=== PATIENT | male | born 1945 | race Asian ===

== ENCOUNTER 2018-07-29 14:42 | Inpatient (IN) | payer OTHER, MEDICARE ==
[~2018-07-29] VITALS: Ht 170.2 cm; Wt 68.0 kg
[2018-07-29] MEDS ORDERED: ATROPINE SULFATE 1 MG/10 ML SYRINGE IVP ONE (14:43)
[2018-07-29] MEDS ORDERED: SODIUM BICARBONATE 8.4% JECT 50 MEQ/50 ML SYRINGE IVP ONE ×2 (14:43→17:30)
[2018-07-29] MEDS ORDERED: EPINEPHrine JECT 1 MG/10 ML SYR IVP ONE (14:43)
[2018-07-29 14:46] VITALS: BP_SYST 92
[2018-07-29] MEDS ORDERED: NACL 0.9% 1,000 ML IV ONE ×2 (14:48→16:30)
[2018-07-29] MEDS ORDERED: ONDANSETRON HCL 4 MG/2 ML VIAL IVP ONE (15:00)
[2018-07-29 16:01] LABS: HEMATOCRIT 40.9 % (36-54); HEMOGLOBIN 12.8 g/dL (14.0-18.0); MEAN CORPUSCULAR HEMOGLOBIN 35 pg (27-31); MEAN CORPUSCULAR HGB CONC 31 % (32-36); MEAN CORPUSCULAR VOLUME 113 fL (79.0-98.0); RED BLOOD CELL COUNT(AUTO) 3.61 MIL/uL (4.2-6.2); RED CELL DISTRIBUTION WIDTH 18.8 % (9.0-15.0); WHITE BLOOD COUNT (AUTO) 8.3 K/uL (4.8-10.8)
[2018-07-29 16:05] LABS: ANION GAP 7 (5-15); CALCIUM 8.5 mg/dL (8.4-11.0); CHLORIDE 100 mmol/L (98-107); CREATININE 3.66 mg/dL (0.55-1.30); GLUCOSE 175 mg/dL (70-99); POTASSIUM 4.5 mmol/L (3.5-5.1); SODIUM SERUM 135 mmol/L (136-145); UREA NITROGEN, BLOOD 21 mg/dL (8-21)
[2018-07-29 16:07] LABS: INR 1.4 (0.80-1.20); PROTHROMBIN TIME 14.5 SECS (9.5-12.5)
[2018-07-29 16:12] LABS: ALANINE AMINOTRANSFERASE 109 U/L (12-78); ALBUMIN 2.7 g/dL (3.4-4.8); AMYLASE 67 U/L (0-100); ASPARTATE AMINOTRANSFERASE 106 U/L (10-37); LIPASE 247 U/L (73-393); TOTAL BILIRUBIN 0.6 mg/dL (0.0-1.0)
[2018-07-29 16:15] LABS: PLATELET COUNT (AUTO) 120 K/uL (130-430)
[2018-07-29] MEDS ORDERED: EPINEPHrine JECT 2 MG in NS 230 ML IV PRN (16:15)
[2018-07-29 16:17] LABS: BAND % (MANUAL) 1 % (0-6); BASOPHILS % (MANUAL) 0 % (0-2); EOSINOPHILS % (MANUAL) 2 % (0-7); LYMPHOCYTES % (MANUAL) 6 % (20-46); MONOCYTES % (MANUAL) 10 % (0-11)
[2018-07-29] MEDS ORDERED: ASPI-1155 PO (17:08)
[2018-07-29] MEDS ORDERED: MIDO5TAB PO (17:08)
[2018-07-29] MEDS ORDERED: LOSA50TA3 PO (17:08)
[2018-07-29] MEDS ORDERED: CARV6.2554 PO (17:08)
[2018-07-29] MEDS ORDERED: CLOP75TA32 PO (17:08)
[2018-07-29] MEDS ORDERED: ATOR40TA68 PO (17:08)
[2018-07-29] MEDS ORDERED: SITA50TA3 PO (17:08)
[2018-07-29] MEDS ORDERED: LEVE500T53 PO (17:08)
[2018-07-29] MEDS ORDERED: SEVE800T8 PO (17:08)
[2018-07-29 17:21] LABS: ALCOHOL, BLOOD < 3 mg/dL (<10)
[2018-07-29] MEDS ORDERED: NEPH PO (17:21)
[2018-07-29] MEDS ORDERED: ERGO500020 PO (17:21)
[2018-07-29] MEDS ORDERED: SODIUM BICARBONATE 8.4% JECT 50 MEQ/50 ML SYRINGE ONE (17:43)
[2018-07-29] MEDS: DOPamine PREMIX 250 ML IV PRN (18:43)
[2018-07-29] MEDS: FAMOTIDINE 20 MG TABLET PO SCH (19:15)
[2018-07-29] MEDS ORDERED: FAMOTIDINE PF 20 MG/2 ML VIAL ONE (19:37)
[2018-07-29] MEDS ORDERED: FAMOTIDINE PF 20 MG/2 ML VIAL IVP SCH (21:00)
[2018-07-29] MEDS ORDERED: NOREPINEPHRINE BITARTRATE 8 MG in D5W 242 ML IV PRN (22:15)
[2018-07-29] MEDS ORDERED: VANCOMYCIN HCL 1 GM/NS PREMIX 250 ML IV ONE (22:15)
[2018-07-29] MEDS ORDERED: DEXTROSE 50% JECT 50 ML DISP.SYRIN IVP PRN (22:15)
[2018-07-29] MEDS ORDERED: LORazepam 2 MG/ML VIAL IVP PRN (22:15)
[2018-07-29] MEDS ORDERED: INSULIN REGULAR, HUMAN 100 UNITS/ML, 10 ML VIAL (novoLIN R) SUBCUT PRN (22:15)
[2018-07-29 23:00] VITALS: BP_SYST 96
[2018-07-29] MEDS: HYDROCORTISONE SOD SUCC 100 MG/2 ML VIAL IVP SCH (23:01)
[2018-07-29] MEDS ORDERED: HYDROCORTISONE SOD SUCC 100 MG/2 ML VIAL ONE (23:08)
[2018-07-29] MEDS: IPRATROPIUM/ALBUTEROL SULFATE 3 ML AMPUL.NEB (DUONEB) INH PRN (23:40)
[2018-07-29] MEDS ORDERED: VANCOMYCIN HCL 1000 MG/VIAL IV ONE (23:46)
[2018-07-30] VITALS (26 sets, daily range): BP systolic 94–162
[2018-07-30] MEDS: DOPamine PREMIX 250 ML IV PRN (03:55)
[2018-07-30] MEDS: HYDROCORTISONE SOD SUCC 100 MG/2 ML VIAL IVP SCH (06:01)
[2018-07-30 06:40] LABS: BASOPHILS % (AUTO) 0.3 % (0.0-2.0); EOSINOPHILS % (AUTO) 0.1 % (0.0-4.0); HEMATOCRIT 40.9 % (36-54); HEMOGLOBIN 12.9 g/dL (14.0-18.0); LYMPHOCYTES # (AUTO) 0.2 K/uL (1.0-5.5); LYMPHOCYTES % (AUTO) 2.2 % (20.5-51.5); MEAN CORPUSCULAR HEMOGLOBIN 35 pg (27-31); MEAN CORPUSCULAR HGB CONC 32 % (32-36); MEAN CORPUSCULAR VOLUME 111 fL (79.0-98.0); MONOCYTES # (AUTO) 0.2 K/uL (0.0-1.0); MONOCYTES % (AUTO) 2.4 % (1.7-9.3); NEUTROPHILS # (AUTO) 7.6 K/uL (1.8-7.7); PLATELET COUNT (AUTO) 103 K/uL (130-430)
[2018-07-30 07:09] LABS: ANION GAP 10 (5-15); CHLORIDE 103 mmol/L (98-107); CREATININE 4.36 mg/dL (0.55-1.30); GLUCOSE 165 mg/dL (70-99); POTASSIUM 3.6 mmol/L (3.5-5.1); SODIUM SERUM 142 mmol/L (136-145); UREA NITROGEN, BLOOD 33 mg/dL (8-21)
[2018-07-30 07:15] LABS: INR 1.4 (0.80-1.20); PROTHROMBIN TIME 13.8 SECS (9.5-12.5)
[2018-07-30 07:24] LABS: ALANINE AMINOTRANSFERASE 92 U/L (12-78); ALBUMIN 2.3 g/dL (3.4-4.8); ASPARTATE AMINOTRANSFERASE 69 U/L (10-37); FREE T4 (FREE THYROXINE) 0.8 ng/dl (0.8-1.5); PHOSPHORUS 3.4 mg/dL (2.7-4.5); THYROID STIMULATING HORMONE 1.21 uIu/mL (0.36-3.74); TOTAL BILIRUBIN 0.7 mg/dL (0.0-1.0)
[2018-07-30] MEDS ORDERED: NON-FORMULARY MEDICATION (Sevelamer Carbonate (Renvela) 800 MG) PO SCH (08:00)
[2018-07-30] MEDS: IPRATROPIUM/ALBUTEROL SULFATE 3 ML AMPUL.NEB (DUONEB) INH PRN (08:23)
[2018-07-30] MEDS ORDERED: NEPHROVITE, (FOLIC ACID/VITAMIN B COMP W-C 1 TAB) PO SCH (09:00)
[2018-07-30] MEDS ORDERED: ASPIRIN 81 MG TAB.CHEW PO SCH (09:00)
[2018-07-30] MEDS ORDERED: PANTOPRAZOLE SODIUM 40 MG/VIAL (PROTONIX) IVP SCH (09:00)
[2018-07-30] MEDS ORDERED: levETIRAcetam 500 MG TABLET PO SCH (09:00)
[2018-07-30] MEDS ORDERED: CLOPIDOGREL BISULFATE 75 MG TABLET PO SCH (09:00)
[2018-07-30] MEDS: FAMOTIDINE 20 MG TABLET PO SCH (09:08)
[2018-07-30] MEDS ORDERED: SEVELAMER HCL 800 MG TABLET PO ONE (09:15)
[2018-07-30] MEDS ORDERED: NOREPINEPHRINE BITARTRATE 4 MG in NS 246 ML IV PRN (09:30)
[2018-07-30] MEDS ORDERED: NOREPINEPHRINE 4 MG/4 ML VIAL IV ONE ×2 (09:47→13:32)
[2018-07-30] MEDS ORDERED: MORPHINE 4 MG/ML INJ. SYRINGE IVP PRN (11:30)
[2018-07-30] MEDS ORDERED: LORazepam 2 MG/ML VIAL IVP PRN (11:30)
[2018-07-30] MEDS: SEVELAMER HCL 800 MG TABLET PO SCH ×2 (11:52→18:19)
[2018-07-30] MEDS ORDERED: ALBUMIN HUMAN 25% 100 ML IV ONE (13:15)
[2018-07-30] MEDS ORDERED: HYDROCORTISONE SOD SUCC 100 MG/2 ML VIAL IVP SCH (14:00)
[2018-07-30] MEDS ORDERED: NOREPINEPHRINE BITARTRATE 16 MG in NS 234 ML IV PRN (14:15)
[2018-07-30] MEDS ORDERED: DOPamine PREMIX 400 MG/250 ML BTL IV ONE (19:19)
[2018-07-30] MEDS ORDERED: EPINEPHrine JECT 1 MG/10 ML SYR IVP ONE (19:19)
[2018-07-30] MEDS ORDERED: SODIUM BICARBONATE 8.4% JECT 50 MEQ/50 ML SYRINGE IVP ONE (19:19)
[2018-07-30] MEDS ORDERED: CALCIUM CHLORIDE 1 GM/10 ML DISP.SYRIN (14 mEq Ca++/SYR) IV ONE (19:19)
[2018-07-30] MEDS ORDERED: MEROPENEM 500 MG in NS 50 ML IV SCH (21:00)
[2018-07-30] MEDS ORDERED: ATORVASTATIN 20 MG TABLET PO SCH (21:00)
== END 2018-07-30 19:20 | disposition expired | DRG 871 ==
LOC: SED 14:42 → SIC 17:27
PROVIDERS: ADMIT Internal Medicine; ATTEND Internal Medicine
PROC: 0BH17EZ Insertion of Endotracheal Airway into Trachea, Via Natural or Artificial Opening (ICD-10-PCS; principal; 2018-07-29)
PROC: 5A1935Z Respiratory Ventilation, Less than 24 Consecutive Hours (ICD-10-PCS; 2018-07-29)
PROC: 5A12012 Performance of Cardiac Output, Single, Manual (ICD-10-PCS; 2018-07-29)
PROC: 5A12012 Performance of Cardiac Output, Single, Manual (ICD-10-PCS; 2018-07-30)
PROC: 02HV33Z Insertion of Infusion Device into Superior Vena Cava, Percutaneous Approach (ICD-10-PCS; 2018-07-30)
PROC: B548ZZA Ultrasonography of Superior Vena Cava, Guidance (ICD-10-PCS; 2018-07-30)
DX: A41.9 Sepsis, unspecified organism (principal); N18.6 End stage renal disease; R65.21 Severe sepsis with septic shock; J69.0 Pneumonitis due to inhalation of food and vomit; J96.02 Acute respiratory failure with hypercapnia; I50.41 Acute combined systolic (congestive) and diastolic (congestive) heart failure; G93.41 Metabolic encephalopathy; I13.2 Hypertensive heart and chronic kidney disease with heart failure and with stage 5 chronic kidney disease, or end stage renal disease; J44.1 Chronic obstructive pulmonary disease with (acute) exacerbation; E78.5 Hyperlipidemia, unspecified; R00.1 Bradycardia, unspecified; I46.9 Cardiac arrest, cause unspecified; D63.8 Anemia in other chronic diseases classified elsewhere; E11.51 Type 2 diabetes mellitus with diabetic peripheral angiopathy without gangrene; E11.22 Type 2 diabetes mellitus with diabetic chronic kidney disease; G40.909 Epilepsy, unspecified, not intractable, without status epilepticus; H54.61 Unqualified visual loss, right eye, normal vision left eye; I25.10 Atherosclerotic heart disease of native coronary artery without angina pectoris; Z95.1 Presence of aortocoronary bypass graft; Z99.2 Dependence on renal dialysis; Z89.511 Acquired absence of right leg below knee; I25.2 Old myocardial infarction; Z88.0 Allergy status to penicillin; Z87.891 Personal history of nicotine dependence; Z86.73 Personal history of transient ischemic attack (TIA), and cerebral infarction without residual deficits; Z83.3 Family history of diabetes mellitus; Z89.422 Acquired absence of other left toe(s); Z79.899 Other long term (current) drug therapy; Z79.82 Long term (current) use of aspirin; Z79.02 Long term (current) use of antithrombotics/antiplatelets
CPT/HCPCS: 36415; 36600; 71045; 74018; 80053; 82140-TC; 82150-TC; 82533; 82550-TC; 82803-TC; 82962; 83605; 83690-TC; 83735-TC; 83880; 84100-TC; 84439; 84443-TC; 84484; 85007; 85025; 85027; 85610-TC; 85730-TC; 87040-TC; 87070-TC; 87205-TC; 90935; 92950; 93005; 93306; 94002; 94003; 94640; 96361; 96365; 96366; 96375; 99291; C9113; G0481; G0482; J0171; J0461; J1265; J1720; J1815; J1956; J2185; J2405; J3370; J3490; J7030; J7040; J7050; J7620; P9046